=== PATIENT | female | born 1985 | race Caucasian/White ===

== ENCOUNTER → 2019-10-28 09:55 | Outpatient (CLI) | payer BC, SELFPAY ==
--- NOTE | ~2019-10-28 | US_ITS ---
EXAMINATION: US OB <= 14 weeks fetus DATE: 10/28/2019 10:22 INDICATION: Gestational dating. TECHNIQUE: Real-time transabdominal and transvaginal obstetric ultrasound. FINDINGS: No prior studies for comparison. The uterus measures 12 x 8.9 x 9.2 cm. There is an intrauterine gestational sac, with pole iden tified. There is a subchorionic hemorrhage to the left of the gestational sac measuring 1.4 x 1.6 x 1 .3 cm. The crown rump length measures 4.97 cm, which correlates with a estimated gestational age of 1 1 weeks 5 days. heart tones are identified measuring 168 BPM. There is a 2.6 cm corpus luteal cyst of the left ovary. IMPRESSION: 1. SL IUP with an EGA of 11 weeks, 5 days (EDC by current ultrasound of 05/13/2020). 2: Subchorionic hemorrhage. 3: 2.6 cm corpus luteal cyst of the left ovary. Reviewed, dictated and finalized at location A. IMPRESSION: 1. SL IUP with an EGA of 11 weeks, 5 days (EDC by current ultrasound of 05/14/19). 2: Subchorionic hemorrhage. 3: 2.6 cm corpus luteal cyst of the left ovary.
== END ==
PROVIDERS: Visit Provider Obstetrics & Gynecology Gynecology
DX: O26.21 Pregnancy care for patient with recurrent pregnancy loss, first trimester (principal); Z3A.11 11 weeks gestation of pregnancy
CPT/HCPCS: 76801

== ENCOUNTER → 2019-11-17 15:07 | Outpatient (CLI) | payer BC, SELFPAY ==
--- NOTE | ~2019-11-17 | US_ITS ---
EXAMINATION: US OB limited DATE: 11/17/2019 15:35 INDICATION: Subchorionic hematoma follow-up. Estimated gestational age of 14 weeks and 4 days. TECHNIQUE: Real-time ultrasound of the pelvis was performed. COMPARISON: Ultrasound 10/28/2019 FINDINGS: There is a single fetus in variable presentation. The placenta is posterior. There is a small subcho rionic hematoma measuring 3.4 x 1.9 x 1.3 cm. heart rate is 134 beats per minute (bpm). The amn iotic fluid volume is subjectively normal. IMPRESSION: 1. Single living fetus in variable presentation. 2. Small subchorionic hematoma. Reviewed, dictated and finalized at location A.
== END ==
PROVIDERS: Visit Provider Obstetrics & Gynecology Gynecology
DX: O36.8910 Maternal care for other specified fetal problems, first trimester, not applicable or unspecified (principal); Z3A.00 Weeks of gestation of pregnancy not specified
CPT/HCPCS: 76815

== ENCOUNTER → 2019-12-09 15:22 | Outpatient (CLI) | payer BC, SELFPAY ==
--- NOTE | ~2019-12-09 | US_ITS ---
EXAMINATION: US OB follow up DATE: 12/09/2019 16:12 INDICATION: Follow-up subchorionic hematoma during second trimester . TECHNIQUE: Real-time ultrasound of the pelvis was performed. The interpreting radiologist was not pre sent for the study. COMPARISON: 11/17/2019 FINDINGS: There is a single living fetus in vertex presentation. The placenta is posterior with caudal margin 3.9 cm from the internal cervical os. The placenta appears partially circumvallate. There appears to be a persistent small subchorionic hematoma along the left inferior elevated margin of the placenta m easuring up to 1.7 x 1.4 cm. heart rate is 154 beats per minute (bpm). The amniotic fluid volum e is subjectively normal. IMPRESSION: 1. Single living fetus in vertex presentation with heart rate of 154 bpm. 2. Likely partially circumvallate placenta with persistent small subchorionic hematoma along the left inferior margin of the placenta. Reviewed, dictated and finalized at location A. IMPRESSION: 1. Single living fetus in vertex presentation with heart rate of 154 bpm. 2. Likely partially circumvallate placenta with persistent small subchorionic h ematoma along the left inferior margin of the placenta.
== END ==
PROVIDERS: Visit Provider Nurse Practitioner
DX: O36.8911 Maternal care for other specified fetal problems, first trimester, fetus 1 (principal)
CPT/HCPCS: 76816

== ENCOUNTER 2020-05-07 04:57 | Inpatient (IN) | payer BC, SELFPAY ==
[2020-05-07] VITALS (83 sets, daily range): BP systolic 91–145; BP diastolic 41–100; PULSE 65–116; RESP 18; TEMP 36.5–36.9; O2SAT 96–100; BMI 41.0
[2020-05-07 05:24] LABS: Basophils Absolute Auto 0.1 K/mm3 (0.0-0.1); Basophils Percent Auto 0.7 % (0.2-1.2); Eosinophils Absolute Auto 0.2 K/mm3 (0-0.3); Eosinophils Percent Auto 2.6 % (0-4.4); Hematocrit 39.5 % (37.0-47.0); Hemoglobin 12.9 g/dL (12.0-15.0); Immature Granulocyte Absolute 0.23 K/mm3 (0.00-0.031); Immature Granulocyte Percent A 2.5 % (0-0.5); Lymphocytes Absolute Auto 1.79 K/mm3 (0.9-3.2); Lymphocytes Percent Auto 19.8 % (18.3-44.2); Mean Corpuscular HGB Conc 32.7 g/dl (32-36); Mean Corpuscular Volume 85.9 fl (80-100); Mean Platelet Volume 10.5 fl (7.4-10.4); Monocytes Absolute Auto 0.5 K/mm3 (0.1-0.6); Monocytes Percent Auto 5.7 % (2.6-8.5); Neutrophils Absolute Auto 6.2 K/mm3 (1.3-6.7); Neutrophils Percent Auto 68.7 % (45.5-73.1); Platelet Count Result 244 k/mm3 (150-375); Red Cell Distribution Width 15.9 % (11.5-14.5); White Blood Count 9.1 K/mm3 (4.5-10.0)
--- NOTE | 2020-05-07 05:29 | LDADM ---
This patient, Janet Rivera, was admitted to Labor/Delivery/Recovery 104 on 05/07/20 at 04:57. Plans for labor, pain management and were discussed with patient. Patient/family oriented to hospital policies and general routines including ID bracelet, bed and alarms, visiting hours, pain management, procedures, bathroom and other care routines, personal items, smoking policy, room service/diet and guest tray routines, infant security routines, and visiting hours. Patient/Family are encouraged to report perceived risks to care and to ask questions if they do not understand what they are told or what they should do. See OBIX for further documentation.
[2020-05-07] MEDS: OXYTOCIN 30 UNITS/NS 500 ML 30 UNITS/500 ML BAG IV CONT (05:43)
[2020-05-07] MEDS: LACTATED RINGERS 1,000 ML 125 ML IV CONT ×3 (05:43→10:34)
[2020-05-07 08:43] LABS: Rapid Plasma Reagin Non-Reactive (NonReactive)
--- NOTE | 2020-05-07 08:54 | WPDOBADMIT ---
Obstetrics - Admit Note Admission Note: record reviewed. No pertinent additions to the history and/or any subsequent changes in the physical findings that are not consistent with the expected course of the were found. Additions to the history and/or subsequent changes in the physical findings follow. Here for MIL. Cervix now 450/-2 AROM with clear fluid. FHTs reactive.
--- NOTE | 2020-05-07 09:22 | WPDANESEPPF ---
Anes - Initial Pre Proc Eval Date/Time: 05/07/20 09:22 Surgeon: Kaylee Thornton MD Pre Op Diagnosis: IOL Patient Data Age: 35 Gender: F Height: 1.6 m Weight: 105 kg Last Vital Signs Temp 36.6 C 05/07/20 06:57 Pulse 85 05/07/20 09:16 BP 127/79 05/07/20 09:16 Allergies Allergy/AdvReac Type Severity Reaction Status Date / Time doxycycline Allergy Mild LOSS OF Verified 11/23/18 12:29 VISION cefaclor Allergy Unknown Verified 03/06/17 21:20 codeine Allergy Unknown Verified 03/06/17 21:20 dextromethorphan Allergy Unknown Verified 03/06/17 21:20 [Robafen DM Cough-Chest Congest] guaifenesin Allergy Unknown Verified 03/06/17 21:20 Penicillins Allergy Unknown Verified 03/06/17 21:20 pseudoephedrine Allergy Unknown Verified 03/06/17 21:20 [Virtussin DAC] Sulfa (Sulfonamide Allergy Unknown Verified 03/06/17 21:20 Antibiotics) sulfamethizole Allergy Unknown Verified 03/06/17 21:20 Home Medications Medication Instructions Recorded Confirmed Type ergocalciferol (vitamin D2) 1,200 unit PO WEEKLY 05/07/20 05/07/20 History levothyroxine 50 mcg PO DAILY 05/07/20 05/07/20 History prenat.vits,daquan,uaq-qnaw-etqbl 1 tablet PO DAILY 05/07/20 05/07/20 History [ Vitamin] Laboratory Tests 05/07/20 05/07/20 05/07/20 05:20 05:20 05:20 WBC 9.1 K/mm3 K/mm3 (4.5-10.0) RBC 4.60 M/mm3 M/mm3 (4.2-5.4) Hgb 12.9 g/dL g/dL (12.0-15.0) Hct 39.5 % % (37.0-47.0) MCV 85.9 fl fl (80-100) MCH 28.0 pg pg (26-34) MCHC 32.7 g/dl g/dl (32-36) RDW 15.9 % H % (11.5-14.5) Plt Count 244 k/mm3 k/mm3 (150-375) MPV 10.5 fl H fl (7.4-10.4) Immature Gran % (Auto) 2.5 % H % (0-0.5) Neut % (Auto) 68.7 % % (45.5-73.1) Lymph % (Auto) 19.8 % % (18.3-44.2) Stoddard % (Auto) 5.7 % % (2.6-8.5) Eos % (Auto) 2.6 % % (0-4.4) Baso % (Auto) 0.7 % % (0.2-1.2) Lymph # (Auto) 1.79 K/mm3 K/mm3 (0.9-3.2) Stoddard # (Auto) 0.5 K/mm3 K/mm3 (0.1-0.6) Eos # (Auto) 0.2 K/mm3 K/mm3 (0-0.3) Baso # (Auto) 0.1 K/mm3 K/mm3 (0.0-0.1) Abs Immat Gran (auto) 0.23 K/mm3 H K/mm3 (0.00-0.031) Absolute Neuts (auto) 6.2 K/mm3 K/mm3 (1.3-6.7) Absolute Nucleated RBC 0.0 K/mm3 K/mm3 (0.0-0.012) Nucleated RBC % 0.0 % % (0.0-0.2) RPR Non-reactive (NonReactive) Blood Type A Positive Antibody Screen Negative Patient hx anesthesia problems: none Family hx anesthesia problems: none PMFSH Social History Social History Smoking status: Never smoker Substance use: never Gender identity (if verbalized by the patient): Female Sexual Orientation (if Verbalized by the Patient): Straight or Heterosexual Spiritual care concerns: No Anes - Eval Final PreProcedure Day of Procedure 05/07/20 09:22 Patient weight: morbidly obese Heart: regular rate and rhythm Lungs: clear to auscultation and normal air movement Airway: Mallampati scale class II Neurological: alert and oriented Last oral intake: >/= 8 hours ASA classification: III Emergent: no Anesthetic plan: proceed Anesthesia type and monitoring: regional epidural Informed Consent: The patient's anesthetic plan and its attendant risks and benefits were discussed with the patient/family/POA. Questions were solicited and answers provided to the satisfaction of the patient/family/POA.
--- NOTE | 2020-05-07 14:25 | PM.OBPRVD ---
OB - Delivery Note Procedure Delivery date: 05/07/20 Procedure: events: Labor Induction Intrapartal events: None Induction method: AROM and per pitocin protocol Delivery monitor: external FHT and external uterine Route of delivery: Laceration Description: Periurethral and Perineal - 2nd Degree Delivery repair: vicryl (3-0 vicryl) Specimen: No Quantitative Blood Loss (ml): 52 Anesthesia type: Epidural Disposition: floor Baby Date of : 05/07/20 Weeks of gestation at delivery: 39 Infant gender: Male presentation: vertex position: Right Occiput Anterior Placenta delivery description: Spontaneous cord vessel description: 3 Vessels score one minute: 9 score five minutes: 9
--- NOTE | 2020-05-07 14:29 | PM.OBDSVD ---
DS: Admitting Diagnosis Admitting Diagnosis Admitting Diagnosis: MIL DS: Discharge Diagnosis Discharge Diagnosis (1) (normal spontaneous vaginal delivery): Code(s): O80 - Encounter for full-term uncomplicated delivery Status: Acute (2) Encounter for sterilization: Code(s): Z30.2 - Encounter for sterilization Status: Acute OB - DS: Summary OB Procedures : Ultrasound OB Procedures Intrapartum: Spontaneous Vag Delivery OB Procedures: : P.P. tubal ligation Peripartum Data Infant Delivery Method: Natural Vaginal Laceration Description: Perineal - 2nd Degree Procedures: Procedures Operation Date: 05/08/20 12:00 <No data on this case meets the specified criteria> complications: none Status at Discharge Functional status at discharge: independent ambulation Overall status at discharge: patient is progressing back to baseline Time Spent with Patient Time attestation: Total time spent providing and/or coordinating discharge services: DS: Data Data Completed and Pending Labs on day of discharge: Labs from last 24 hours 05/07/20 05/07/20 05/07/20 05:20 05:20 05:20 WBC 9.1 RBC 4.60 Hgb 12.9 Hct 39.5 MCV 85.9 MCH 28.0 MCHC 32.7 RDW 15.9 H Plt Count 244 MPV 10.5 H Immature Gran % (Auto) 2.5 H Neut % (Auto) 68.7 Lymph % (Auto) 19.8 Bradley % (Auto) 5.7 Eos % (Auto) 2.6 Baso % (Auto) 0.7 Lymph # (Auto) 1.79 Bradley # (Auto) 0.5 Eos # (Auto) 0.2 Baso # (Auto) 0.1 Abs Immat Gran (auto) 0.23 H Absolute Neuts (auto) 6.2 Absolute Nucleated RBC 0.0 Nucleated RBC % 0.0 RPR Non-reactive Blood Type A Positive Antibody Screen Negative Discharge Plan Discharge Attending physician on discharge: Kaylee Thornton Discharging Clinician: Arik Maharaj Anticipated Discharge Date/Time: 05/08/20 14:30 Patient Disposition: Home, Self-Care Activity: may shower, may drive after 2 weeks and pelvic rest Diet: regular Wound Care Instructions: incision open to air Discharge Instructions: Education: Mom and Baby Guide and Preeclampsia Handout Given to: Mother Follow-Up: Call your delivering provider's office for an appointment to be seen in: 1 Week Mom and baby should come to the [facility] for the follow-up appointment. Appointment Date/Time: May 11, 2020 at 11:00 am What to expect at your follow-up visit: Physical Assessment Call [phone] if you are unable to keep your appointment time. BREAST CARE: * Wear a snug supportive bra. * For engorgement discomfort: Breast Feeding: * Apply warm moist washcloths * Express milk as needed to relieve engorgement * Wear loose clothing * For sore nipples: * Identify correct latch-on * Apply warm moist washcloths before and after nursing * Air dry nipples after nursing * May apply Lansinoh cream to nipples ABDOMINAL INCISION: (if applicable) * Allow incision to air dry * Do NOT use lotions for powders on your incision * When showering, allow soap and water to run over the incision, but do not wash incision EPISIOTOMY/PERINEAL CARE: * Until bleeding stops, use your nguyen bottle after urinating * Change your pad frequently throughout the day * You may take sitz baths several times a day (fill your bathtub with warm water and soak for 20 minutes.) Do NOT bathe in the water * No tub baths until seen by your physician - You may shower ACTIVITY: * Rest as much as possible. * Do not exercise or lift anything heavier than your baby (such as laundry or other children.) * Avoid stairs or driving as much as possible. * Do not put anything into the vagina. No douching, tampons, or sexual activity until seen by physician. NOTIFY PHYSICIAN IF YOU HAVE ANY QUESTIONS OR IF ANY OF THE FOLLOWING SYMPTOMS OCCUR: * If your episioto
--- NOTE | 2020-05-07 14:31 | PM.IMHP ---
H&P: HPI History of Present Illness Date/Time: 05/07/20 14:31 Chief Complaint: requests pp BTL Narrative: Janet Rivera is a 35 year old female requesting a pp BTL. Patient is aware this is a permanent and irreversible procedure rendering her sterile. Patient was informed of the risks of infection, bleeding, injury to internal organs, and tubal failure with increased ectopic if fails Review of Systems Review of Systems: Narrative: not repeated day of surgery; patient states no changes in status [facility] Past Medical History Medical History (Updated 05/07/20 @ 14:33 by Kaylee Thornton MD) Asthma Celiac disease Hypothyroid Social History Social History Smoking status: Never smoker Substance use: never Gender identity (if verbalized by the patient): Female Sexual Orientation (if Verbalized by the Patient): Straight or Heterosexual Spiritual care concerns: No Meds Home Medications and Allergies Home Medications Medication Instructions Recorded Confirmed Type ergocalciferol (vitamin D2) 1,200 unit PO WEEKLY 05/07/20 05/07/20 History levothyroxine 50 mcg PO DAILY 05/07/20 05/07/20 History prenat.vits,daquan,wdq-ovdi-ockre 1 tablet PO DAILY 05/07/20 05/07/20 History [ Vitamin] Allergies Allergy/AdvReac Type Severity Reaction Status Date / Time doxycycline Allergy Mild LOSS OF Verified 11/23/18 12:29 VISION cefaclor Allergy Unknown Verified 03/06/17 21:20 codeine Allergy Unknown Verified 03/06/17 21:20 dextromethorphan Allergy Unknown Verified 03/06/17 21:20 [Robafen DM Cough-Chest Congest] guaifenesin Allergy Unknown Verified 03/06/17 21:20 Penicillins Allergy Unknown Verified 03/06/17 21:20 pseudoephedrine Allergy Unknown Verified 03/06/17 21:20 [Virtussin DAC] Sulfa (Sulfonamide Allergy Unknown Verified 03/06/17 21:20 Antibiotics) sulfamethizole Allergy Unknown Verified 03/06/17 21:20 Vital Signs Vital Signs - 24 hr 05/07/20 05:49 05/07/20 06:00 05/07/20 06:01 Temperature 97.7 F Pulse Rate 102 H 109 H Blood Pressure 100/67 113/78 Pulse Oximetry 05/07/20 06:16 05/07/20 06:18 05/07/20 06:31 Temperature Pulse Rate 103 H 100 92 Blood Pressure 120/71 123/66 120/75 Pulse Oximetry 05/07/20 06:46 05/07/20 06:57 05/07/20 07:01 Temperature 97.9 F Pulse Rate 89 90 Blood Pressure 120/74 122/83 Pulse Oximetry 05/07/20 07:31 05/07/20 07:46 05/07/20 08:01 Temperature Pulse Rate 97 91 91 Blood Pressure 134/79 132/89 129/79 Pulse Oximetry 05/07/20 08:16 05/07/20 08:31 05/07/20 08:46 Temperature Pulse Rate 90 89 84 Blood Pressure 132/78 127/80 139/72 Pulse Oximetry 05/07/20 08:50 05/07/20 09:01 05/07/20 09:16 Temperature 97.9 F Pulse Rate 78 85 Blood Pressure 132/73 127/79 Pulse Oximetry 05/07/20 09:22 05/07/20 09:27 05/07/20 09:32 Temperature Pulse Rate 82 Blood Pressure 125/79 Pulse Oximetry 100 100 99 05/07/20 09:34 05/07/20 09:36 05/07/20 09:37 Temperature Pulse Rate 82 69 102 H Blood Pressure 114/63 125/100 H 96/56 L Pulse Oximetry 99 05/07/20 09:40 05/07/20 09:42 05/07/20 09:43 Temperature 97.9 F Pulse Rate 84 84 Blood Pressure 110/43 L 125/62 Pulse Oximetry 100 05/07/20 09:44 05/07/20 09:46 05/07/20 09:47 Temperature Pulse Rate 78 91 Blood Pressure 104/56 L 117/63 Pulse Oximetry 99 05/07/20 09:49 05/07/20 09:52 05/07/20 09:55 Temperature Pulse Rate 79 81 95 Blood Pressure 122/71 112/71 121/52 L Pulse Oximetry 99 05/07/20 09:57 05/07/20 09:59 05/07/20 10:01 Temperature Pulse Rate 89 83 Blood Pressure 109/62 110/58 L Pulse Oximetry 99 05/07/20 10:02 05/07/20 10:04 03/08/21 10:07 Temperature Pulse Rate 82 80 Blood Pressure 115/66 114/65 Pulse Oximetry 100 99 05/07/20 10:10 05/07/20 10:12 05/07/20 10:13 Temperature Pulse Rate 85 79 Blood Pressure 118/71 122/
[2020-05-07] MEDS: OXYTOCIN 30 UNITS/NS 500 ML 30 UNITS/500 ML BAG 125 UNITS IV CONT (14:50)
[2020-05-07] MEDS: BENZOCAINE 20% AER SPR (*SP) 56 GM CAN 1 SPRAY TOPICAL (17:34)
[2020-05-07] MEDS: WITCH HAZEL 40 PADS 1 PAD TOPICAL (17:34)
[2020-05-07] MEDS: IBUPROFEN 600 MG TABLET PO (18:00)
--- NOTE | 2020-05-07 18:46 | PC.NURSE ---
1743-Patient transferred to post room #286 via wheelchair. Transferred to bed via Margarita Steady. Support person present. Oriented to unit, room, information board, rooming in, admission packet and security measures. Patient verbalizes understanding.
[2020-05-08] VITALS (9 sets, daily range): BP systolic 95–128; BP diastolic 57–82; PULSE 77–96; RESP 16–22; TEMP 36.6–37.3; O2SAT 96–100
[2020-05-08 04:33] LABS: Hematocrit 33.5 % (37.0-47.0); Hemoglobin 10.9 g/dL (12.0-15.0); Mean Corpuscular HGB Conc 32.5 g/dl (32-36); Mean Corpuscular Hemoglobin 27.5 pg (26-34); Mean Corpuscular Volume 84.6 fl (80-100); Mean Platelet Volume 10.5 fl (7.4-10.4); Platelet Count Result 235 k/mm3 (150-375); Red Blood Count 3.96 M/mm3 (4.2-5.4); Red Cell Distribution Width 15.8 % (11.5-14.5); White Blood Count 10.9 K/mm3 (4.5-10.0)
--- NOTE | 2020-05-08 07:39 | PM.OBPNVD ---
OB - PN: Subj Subjective Date/time seen: 05/08/20 07:39 Patient comments: no complaints and pain well controlled baby status: doing well OB - PN: Obj Data Labs CBC & Chem 7: 05/08/20 04:15 Labs: Laboratory Results - last 24 hr 05/07/20 05/08/20 05:20 04:15 WBC 10.9 H RBC 3.96 L Hgb 10.9 L Hct 33.5 L MCV 84.6 MCH 27.5 MCHC 32.5 RDW 15.8 H Plt Count 235 MPV 10.5 H RPR Non-reactive OB - PN A/P Assessment and Plan (1) Encounter for sterilization: Code(s): Z30.2 - Encounter for sterilization Status: Acute Assessment and Plan: plan pp BTL Patient questions answered. Plan day: 1 Plan: routine care Time Spent With Patient Time: Total time spent is greater than 50% in coordination of care (as documented) at patient's floor/unit and/or counseling patient: Exam : Bimanual exam- vagina & uterus: other (Uterus firm, nt @U)
[2020-05-08] MEDS: LEVOTHYROXINE SODIUM 50 MCG TABLET PO (07:42)
[2020-05-08] MEDS: IBUPROFEN 600 MG TABLET PO ×2 (07:48→14:39)
--- NOTE | 2020-05-08 10:33 | PC.NURSE ---
Pre-op here to take patient for surgery per hospital bed.
[2020-05-08] MEDS: LACTATED RINGERS 1,000 ML 30 ML IV CONT (10:40)
--- NOTE | 2020-05-08 11:03 | WPDANESEPPF ---
Anes - Initial Pre Proc Eval Procedure: Operation Date: 05/08/20 12:00 Proposed Procedures p Post- Tubal Ligation - Kaylee Thornton MD Date/Time: 05/08/20 11:03 Surgeon: Kaylee Thornton MD Pre Op Diagnosis: IOL Patient Data Age: 35 Gender: F Height: 5 ft 3 in Weight: 105 kg Last Vital Signs Temp 97.9 F 05/08/20 10:41 Pulse 80 05/08/20 10:41 Resp 16 05/08/20 10:41 BP 118/75 05/08/20 10:41 Pulse Ox 98 05/08/20 10:41 Allergies Allergy/AdvReac Type Severity Reaction Status Date / Time doxycycline Allergy Mild LOSS OF Verified 11/23/18 12:29 VISION cefaclor Allergy Unknown Verified 03/06/17 21:20 codeine Allergy Unknown Verified 03/06/17 21:20 dextromethorphan Allergy Unknown Verified 03/06/17 21:20 [Robafen DM Cough-Chest Congest] guaifenesin Allergy Unknown Verified 03/06/17 21:20 Penicillins Allergy Unknown Verified 03/06/17 21:20 pseudoephedrine Allergy Unknown Verified 03/06/17 21:20 [Virtussin DAC] Sulfa (Sulfonamide Allergy Unknown Verified 03/06/17 21:20 Antibiotics) sulfamethizole Allergy Unknown Verified 03/06/17 21:20 Home Medications Medication Instructions Recorded Confirmed Type ergocalciferol (vitamin D2) 1,200 unit PO WEEKLY 05/07/20 05/07/20 History levothyroxine 50 mcg PO DAILY 05/07/20 05/07/20 History prenat.vits,daquan,fnu-tuho-vhfhp 1 tablet PO DAILY 05/07/20 05/07/20 History [ Vitamin] Laboratory Tests 05/08/20 04:15 WBC 10.9 K/mm3 H K/mm3 (4.5-10.0) RBC 3.96 M/mm3 L M/mm3 (4.2-5.4) Hgb 10.9 g/dL L g/dL (12.0-15.0) Hct 33.5 % L % (37.0-47.0) MCV 84.6 fl fl (80-100) MCH 27.5 pg pg (26-34) MCHC 32.5 g/dl g/dl (32-36) RDW 15.8 % H % (11.5-14.5) Plt Count 235 k/mm3 k/mm3 (150-375) MPV 10.5 fl H fl (7.4-10.4) Patient hx anesthesia problems: none Family hx anesthesia problems: none PMFSH Past Medical History Medical History (Updated 05/07/20 @ 14:33 by Kaylee Thornton MD) Asthma Celiac disease Hypothyroid Social History Social History Smoking status: Never smoker Substance use: never Gender identity (if verbalized by the patient): Female Sexual Orientation (if Verbalized by the Patient): Straight or Heterosexual Spiritual care concerns: No Anes - Eval Final PreProcedure Day of Procedure 05/08/20 11:03 Patient weight: morbidly obese Heart: regular rate and rhythm Lungs: clear to auscultation Airway: Mallampati scale class II Neurological: alert and oriented Last oral intake: >/= 8 hours ASA classification: III Emergent: no Anesthetic plan: proceed Anesthesia type and monitoring: general GIVS, regional (has epidural in place and states it worked well for labor) epidural and standard monitoring Informed Consent: The patient's anesthetic plan and its attendant risks and benefits were discussed with the patient/family/POA. Questions were solicited and answers provided to the satisfaction of the patient/family/POA.
--- NOTE | 2020-05-08 11:43 | SUR.PREOP ---
Resting without complaints.
--- NOTE | 2020-05-08 12:34 | WPDHPUPDATE1 ---
History and Physical Update Update Date/Time: 05/08/20 12:34 History and Physical has been reviewed, including an updated exam of the patient. There are NO changes in the patient's condition. Risks, benefits, and alternatives have been discussed and questions answered. Patient agrees to proceed with procedure.
--- NOTE | 2020-05-08 13:12 | P.OP_ITS ---
Procedure Note - Detailed Date of procedure: 05/08/20 Pre-op diagnosis: requests sterilization Post-op diagnosis: same Procedure performed: pp BTL Description of procedure: The patient was taken to the operating room in the dorsal supine position. She was prepped and draped in the usual sterile fashion. Once anesthesia was deemed adequate the skin incision was injected with 1% lidocaine. The scalpel used to make a vertical skin incision below the umbilicus approximately 4cm in length. This incision is carried down to the fascia fascia is grasped with [facility] and tented and the fascia was entered u sing Tay scissors. The peritoneum is entered with a Peon. The small Power retractors are used to retract the abdominal wall the left tube is identified grasped with a Anum pulled through to its fimbriated end the distal 2/3 of the tube are crossclamped excised and the pedicle was tied off using 0 Vicryl. The identical procedure was performed on the right side. The hemostasis is noted at both pedicles. The fascia is closed using 0 Vicryl in a running fashion. The skin incision is closed using 4 0 Vicryl in a subcuticular fashion. Dermaflex was placed over the incision. Sponge, instrument, and needle counts are correct per the OR staff. Anesthesia: local and epidural Surgeon: Kaylee Thornton MD Estimated blood loss (mL): 5 Drains: No Packing: No Pathology: yes (B tubes) Complications: No immediate complications Condition: stable Disposition: PACU Findings: normal appearing tubes
--- NOTE | 2020-05-08 13:22 | SUR.OPER ---
epidural removed by dr. boyer. blue tip intact. bandaid placed on site
--- NOTE | 2020-05-08 13:26 | WPDANLDPN2 ---
Anes-Prog Note L&D Date/Time: 05/08/20 13:26 Comfortable throughout: labor and delivery Neuraxial method: epidural Epidural/Spinal procedure site: clean & non-tender Neuro status: Neuro function grossly intact. Cardiovascular status: normal Respiratory status: normal Airway patency: baseline Mental status: baseline Post-Op hydration status: normal Vital Signs: Last Vital Signs Temp 36.6 C 05/08/20 10:41 Pulse 80 05/08/20 10:41 Resp 16 05/08/20 10:41 BP 118/75 05/08/20 10:41 Pulse Ox 98 05/08/20 10:41 Pain score (VAS): 03/11 I/O: Intake & Output 05/07/20 05/08/20 05/08/20 23:59 07:59 15:59 Output Total 80 Balance -80 Post-procedural complaints: none Patient feedback: Patient satisfied with anesthetic care.
--- NOTE | 2020-05-08 14:28 | PC.NURSE ---
Pt returned to floor from PACU per bed to room 286.
[2020-05-08] MEDS: ACETAMINOPHEN 325 MG TABLET 650 MG PO ×2 (16:20→21:49)
[2020-05-09] MEDS: IBUPROFEN 600 MG TABLET PO (05:23)
[2020-05-09] MEDS: LEVOTHYROXINE SODIUM 50 MCG TABLET PO (05:23)
--- NOTE | 2020-05-09 08:05 | PC.NURSE ---
Patient instructed on viewing the discharge video Mother & Baby Care, The First Two Weeks . Patient was given the opportunity and encouraged to ask questions. Patient verbalized understanding of information shared and has been given the mother/baby guide for home reference.
[2020-05-09 08:10] VITALS: BP 102/67; PULSE 79; RESP 18; TEMP 37.3; O2SAT 95
[2020-05-09] MEDS: MULTIVIT/MIN/PREN/FOL AC/IRON TABLET 1 TAB PO (08:43)
--- NOTE | 2020-05-09 10:55 | PC.NURSE ---
Consult with pt., did not see pt 05/08 due to PPTL. Observed mother is able to independently latch infant with appropriate positioning/alignment. She reports slight any nipple discomfort, is feeding as required and waking infant to feed if needed. Reviewed feeding cues, frequencies, duration of feedings, feeding elimination flow sheet, and signs of adequate intake. Demonstrated stimulation techniques to wake infant for feeding. Reviewed positioning/alignment in cross cradle, holding breast in U hold and guided asymmetrical latch on. was able to latch correctly within a few attempts. Infant nursed eagerly, with steady draws and frequent swallowing noted. Reviewed signs of a correct latch, effective nursing and suck swallow ratio. was able to maintain latch. Mother reported tenderness at times, infant had slipped to shallow latch. Demonstrated how to adjust latch more deeply while feeding. Mother quickly reports she can feel is latched more deeply and has minimal tenderness. Suggested to stimulate infant while feeding to keep awake and nursing effectively for increased stimulation and increased intake. Instructed mother to call out for RN assistance if she is unable to latch for feeding or she has discomfort with nursing. Infant has had at least 8 effective feedings in the past 24 hours, and is currently meeting outcomes for weight, output, jaundice and feeding frequencies. Mother states she feels confident to continue effective at home. Reviewed transition to breast milk, signs of adequate intake, and engorgement/relief. Instructed to call ICP if intake/output less than required. Reviewed regular medications mother is taking. Information provided per [place]. Reviewed community resources on the [facility] website and in the Mom/Baby guide. Information on outpatient services provided. Mother has no further questions at this time.
[2020-05-11 11:27] VITALS: BP 131/82; PULSE 84; RESP 16; TEMP 36.6; O2SAT 100
== END 2020-05-09 12:25 | disposition home or self-care (01) | DRG 798 ==
LOC: ANHLDR 14:31 → ANHOB2 05-08 13:14 → ANHLDR 05-10 09:49 → ANHOB2 05-10 09:49
PROVIDERS: Admitting Provider Obstetrics & Gynecology Gynecology; Visit Provider Obstetrics & Gynecology
PROC: 0UB70ZZ Excision of Bilateral Fallopian Tubes, Open Approach (ICD-10-PCS; CPT 58605; principal; 2020-05-08 12:00)
DX: O99.824 Streptococcus B carrier state complicating childbirth (principal); Z37.0 Single live birth; Z3A.39 39 weeks gestation of pregnancy; O70.1 Second degree perineal laceration during delivery; Z30.2 Encounter for sterilization; O99.214 Obesity complicating childbirth; E66.01 Morbid (severe) obesity due to excess calories; O99.52 Diseases of the respiratory system complicating childbirth; J45.909 Unspecified asthma, uncomplicated; O99.284 Endocrine, nutritional and metabolic diseases complicating childbirth; E03.9 Hypothyroidism, unspecified; O99.62 Diseases of the digestive system complicating childbirth; K90.0 Celiac disease
CPT/HCPCS: 36415; 85025; 85027; 86592; 86850; 86900; 86901; 88302; A9270; J2590; J2704; J2795; J3370; J7120

== ENCOUNTER 2021-12-17 22:01 | Emergency (ER) | payer BC, OTHER, SELFPAY ==
--- NOTE | ~2021-12-17 | XR_ITS ---
EXAMINATION: XR chest 1V portable Exam Date/Time: 12/17/2021 22:44 CDT HISTORY: MIDSTERNAL CP W/ SOB TODAY N/V/D 1 DAY HX ASTHMA Comparison: None available. RESULT: Lines, tubes, and devices: None. Lungs and pleura: Clear. Cardiomediastinal silhouette: Unremarkable. Other: No acute osseous or upper abdominal finding. IMPRESSION: No acute cardiopulmonary process. Reviewed, dictated and finalized at location K.
[2021-12-17 22:06] VITALS: BP 115/79; PULSE 92; RESP 18; TEMP 36.3; O2SAT 100
--- NOTE | 2021-12-17 22:19 | ECG_ITS ---
Measurements Intervals [place] Rate: 89 P: 30 AL: 162 QRS: -1 QRSD: 94 T: 23 QT: 345 QTc: 420 Interpretive Statements SINUS RHYTHM NONSPECIFIC ST ABNORMALITY BORDERLINE ECG NO PREVIOUS ECG AVAILABLE FOR COMPARISON Electronically Signed On 12-18-2021 10:20:03 CDT by Mundo Beverly M.D.
--- NOTE | 2021-12-17 22:21 | ED.CHESTPAIN ---
HPI - Chest Pain General Chief Complaint: Nausea/Vomiting/Diarrhea Stated Complaint: Nausea, body aches, chest pain Time Seen by Provider: 12/17/21 22:13 Source: patient Mode of arrival: ambulatory Limitations: no limitations History of Present Illness HPI narrative: Patient presents complaints of generalized chest pain that started at 1800 this evening. Reports of nausea vomiting yesterday x2 episodes with diarrhea x1 episode. Reports some shortness of breath at times and has been using rescue inhaler at home. History of asthma. Did not take any other medications prior to arrival. Denies recent illness, fever, chills or other symptoms at this time. Last menstrual period November 27 but states has had tubal ligation. Related Data Home Medications Medication Instructions Recorded Confirmed ergocalciferol (vitamin D2) 1,250 1,200 unit PO WEEKLY 05/07/20 05/07/20 mcg (50,000 unit) capsule levothyroxine 50 mcg tablet 50 mcg PO DAILY 05/07/20 05/07/20 prenat.vits,daquan,mmq-tanw-txaza 1 tablet PO DAILY 05/07/20 05/07/20 Allergies Allergy/AdvReac Type Severity Reaction Status Date / Time doxycycline Allergy Mild LOSS OF Verified 12/17/21 22:03 VISION cefaclor Allergy Unknown Unknown Verified 12/17/21 22:03 codeine Allergy Unknown Unknown Verified 12/17/21 22:03 dextromethorphan Allergy Unknown Unknown Verified 12/17/21 22:03 [Robafen DM Cough-Chest Congest] guaifenesin Allergy Unknown Unknown Verified 12/17/21 22:03 Penicillins Allergy Unknown Unknown Verified 12/17/21 22:03 pseudoephedrine Allergy Unknown Unknown Verified 12/17/21 22:03 [Virtussin DAC] Sulfa (Sulfonamide Allergy Unknown Unknown Verified 12/17/21 22:03 Antibiotics) sulfamethizole Allergy Unknown Unknown Verified 12/17/21 22:03 Review of Systems Review of Systems: CONSTITUTIONAL: Denies fever, chills, or sweats. EYES: Denies visual changes, redness, or discharge. ENT: Denies rhinorrhea, congestion, sore throat, or otalgia. CARDIOVASCULAR: Generalized chest pain. Denies palpitations, or edema. RESPIRATORY: Denies cough or dyspnea. GASTROINTESTINAL: Denies abdominal pain. nausea, vomiting, or diarrhea yesterday. GENITOURINARY: Denies dysuria or hematuria. SKIN: Denies rash or itching. MUSCULOSKELETAL: Denies back pain, joint pain, or myalgia. NEUROLOGIC: Denies headache, numbness, or weakness. PSYCHIATRIC: Denies anxiety or depression. PMFSH Past Medical History Medical History Asthma Celiac disease Hypothyroid Social History Social History Smoking status: Never smoker Substance use: never Gender identity (if verbalized by the patient): Female Sexual Orientation (if Verbalized by the Patient): Straight or Heterosexual Spiritual care concerns: No Exam Narrative: GENERAL: Well-appearing, well-nourished, and in no acute distress. HEAD: Normocephalic, atraumatic. EYES: PERRLA and EOMI. ENT: Nares clear, no rhinorrhea or epistaxis. Mucous membranes moist. NECK: Supple. CHEST: Clear to auscultation. No respiratory distress. Tender to palpation midsternal chest. HEART: Regular rate and rhythm. No murmur heard. Normal peripheral pulses. ABDOMEN: Soft, nontender, nondistended, normal active bowel sounds. EXTREMITIES: Normal range of motion. No edema. SKIN: Warm, dry, no rash. NEURO: No focal deficits. Alert and oriented x3. PSYCH: Normal mood and affect. Course Course Emergency Course: Reports feeling better following Toradol IV. States ready to go home. Vital Signs Vital signs: Vital Signs Temperature 36.3 C L 12/17/21 22:06 Pulse Rate 92 12/17/21 22:06 Respiratory Rate 18 12/17/21 22:06 Blood Pressure 115/79 12/17/21 22:06 Pulse Oximetry 100 12/17/21 22:06 Oxygen Delivery Room Air 12/17/21 22:06 Temperature 36.3 C L 12/17/21 22:06 Pulse Rate 85 12/17/21 23:16
[2021-12-17 22:30] VITALS: BP 123/93; PULSE 91; RESP 19; O2SAT 100
[2021-12-17 22:33] LABS: Basophils Percent Auto 0.4 % (0.2-1.2); Eosinophils Absolute Auto 0.1 K/mm3 (0-0.3); Eosinophils Percent Auto 1.8 % (0-4.4); Hematocrit 40.4 % (37.0-47.0); Hemoglobin 13.2 g/dL (12.0-15.0); Immature Granulocyte Absolute 0.03 K/mm3 (0.00-0.031); Immature Granulocyte Percent A 0.5 % (0-0.5); Lymphocytes Absolute Auto 1.44 K/mm3 (0.9-3.2); Lymphocytes Percent Auto 26.3 % (18.3-44.2); Mean Corpuscular HGB Conc 32.7 g/dl (32-36); Mean Corpuscular Hemoglobin 28.9 pg (26-34); Mean Corpuscular Volume 88.4 fl (80-100); Mean Platelet Volume 10.3 fl (7.4-10.4); Monocytes Absolute Auto 0.6 K/mm3 (0.1-0.6); Monocytes Percent Auto 11.3 % (2.6-8.5); Neutrophils Absolute Auto 3.3 K/mm3 (1.3-6.7); Neutrophils Percent Auto 59.7 % (45.5-73.1); Platelet Count Result 229 k/mm3 (150-375); Red Blood Count 4.57 M/mm3 (4.2-5.4); Red Cell Distribution Width 13.2 % (11.5-14.5); White Blood Count 5.5 K/mm3 (4.5-10.0)
[2021-12-17 22:45] LABS: INR 1.1; Prothrombin Time 13.6 Seconds (11.1-14.7)
[2021-12-17 22:46] LABS: Partial Thromboplastin Time 29.7 SECONDS (22.3-36.8)
[2021-12-17 22:49] LABS: Alanine Aminotransferase 28 U/L (6-35); Albumin Level 4.4 g/dL (3.5-5.1); Alkaline Phosphatase 50 U/L (38-126); Anion Gap 13 mmol/L (8-16); Aspartate Amino Transferase 27 U/L (14-36); Bilirubin,Total 0.7 mg/dL (0.2-1.3); Blood Urea Nitrogen 13 mg/dL (7-17); Calcium 9.1 mg/dL (8.4-10.2); Carbon Dioxide 23 mmol/L (22-30); Chloride 101 mmol/L (98-107); Estimated CRCL calculation 90 ml/min; Estimated Glomerular Filt Rate > 60; Glucose 103 mg/dL (65-110); Lipase 109 U/L (23-300); Potassium 3.5 mmol/L (3.4-5.0); Sodium 137 mmol/L (137-145)
[2021-12-17 23:00] VITALS: BP 112/74; PULSE 86; RESP 23
[2021-12-17 23:00] LABS: Troponin I < 0.012 ng/mL (0.000-0.034)
[2021-12-17 23:16] VITALS: BP 120/74; PULSE 85; RESP 26; O2SAT 100
[2021-12-17] MEDS: KETOROLAC 30 MG/ML VIAL (*BKC) IV PUSH (23:38)
[2021-12-18 00:15] VITALS: BP 105/59; PULSE 86; RESP 18; O2SAT 100
== END 2021-12-18 00:12 | disposition home or self-care (01) ==
PROVIDERS: Emergency Provider Nurse Practitioner
DX: R07.89 Other chest pain (principal); K52.9 Noninfective gastroenteritis and colitis, unspecified; J45.909 Unspecified asthma, uncomplicated; K90.0 Celiac disease; E03.9 Hypothyroidism, unspecified
CPT/HCPCS: 36415; 71045; 80053; 83690; 84484; 85025; 85610; 85730; 93005; 96374; 99284; J1885

== ENCOUNTER 2023-02-05 04:13 | Day surgery (SDC) | payer BC, SELFPAY ==
[2023-01-26 11:11] VITALS: BMI 35.5
--- NOTE | 2023-02-03 11:39 | SUR.PREOP ---
Message left with patient regarding upcoming procedure. Reviewed preop instructions, appointment times, and procedure prep.
[2023-02-05 08:34] VITALS: BP 136/77; PULSE 87; RESP 20; TEMP 36.3; O2SAT 100; BMI 36.6
[2023-02-05] MEDS: LACTATED RINGERS 1,000 ML 150 ML IV CONT (08:42)
--- NOTE | 2023-02-05 08:59 | P.HP_ITS ---
History of Present Illness History of Present Illness Consent: Risks, benefits, and alternatives have been discussed and questions answered. Patient agrees to proceed with procedure. Chief complaint: Neoplasm Screening Narrative: Janet Rivera is a 37 year old female Presents for screening colonoscopy. Patient has a history that she was diagnosed with celiac disease in [place] several years ago. During workup for her diagnosis she underwent a colonoscopy which revealed benign colon polyps. The histology of which is somewhat unknown. She was suggested to have follow-up colonoscopies at 5-10 year intervals. Patient currently states her celiac disease is under control. She follows a gluten free diet. She states her bowel habits currently are normal. She denies any abdominal pain or bleeding. Review of Systems Review of Systems: Review of systems noncontributory. [facility] Past Medical History Medical History Asthma Celiac disease Hypothyroid Social History Social History Smoking status: Never smoker Alcohol intake: current Drinks per week: 7 Substance use: never Substance use type: does not use Living arrangements: alone Gender identity (if verbalized by the patient): Female Sexual Orientation (if Verbalized by the Patient): Straight or Heterosexual Spiritual care concerns: No Meds Home Medications and Allergies Allergies Allergy/AdvReac Type Severity Reaction Status Date / Time doxycycline Allergy Mild LOSS OF Verified 02/05/23 08:32 VISION cefaclor Allergy Unknown Unknown Verified 02/05/23 08:32 codeine Allergy Unknown Unknown Verified 02/05/23 08:32 Penicillins Allergy Unknown Unknown Verified 02/05/23 08:32 Sulfa (Sulfonamide Allergy Unknown Unknown Verified 02/05/23 08:32 Antibiotics) sulfamethizole Allergy Unknown Unknown Verified 02/05/23 08:32 Vital Signs Vital Signs - 24 hr 02/05/23 08:34 Temperature 97.3 F L Pulse Rate 87 Respiratory Rate 20 Blood Pressure 136/77 Pulse Oximetry 100 Oxygen Delivery Room Air Exam Narrative: Physical exam reveals patient to be alert. Vital signs stable. HEENT exam is unremarkable. Patient is anicteric. Lungs are clear to auscultation and percussion. Heart is without murmur or extra sounds. Abdomen bowel sounds are present soft nontender with no organomegaly. Digital external rectal exam is normal. Assessment and Plan Assessment and plan (1) Encounter for screening colonoscopy: Code(s): Z12.11 - Encounter for screening for malignant neoplasm of colon Status: Acute Assessment and Plan: Patient is referred for screening colonoscopy. It appears as though she may have had colon polyps by previous exam performed in [place]. The histology of these are unavailable. Plan for screening colonoscopy now and further recommendations may be given after endoscopy.
--- NOTE | 2023-02-05 09:41 | WPDANESEPPF ---
Anes - Initial Pre Proc Eval Procedure: Operation Date: 02/05/23 10:00 Proposed Procedures p Screening Colonoscopy - Too Hobson MD Date/Time: 02/05/23 09:41 Surgeon: Too Hobson MD Pre Op Diagnosis: Neoplasm Screening Patient Data Age: 37 Gender: F Height: 1.6 m Weight: 93.9 kg Last Vital Signs Temp 97.3 F L 02/05/23 08:34 Pulse 87 02/05/23 08:34 Resp 20 02/05/23 08:34 BP 136/77 02/05/23 08:34 Pulse Ox 100 02/05/23 08:34 O2 Del Method Room Air 02/05/23 08:34 Allergies Allergy/AdvReac Type Severity Reaction Status Date / Time doxycycline Allergy Mild LOSS OF Verified 02/05/23 08:32 VISION cefaclor Allergy Unknown Unknown Verified 02/05/23 08:32 codeine Allergy Unknown Unknown Verified 02/05/23 08:32 Penicillins Allergy Unknown Unknown Verified 02/05/23 08:32 Sulfa (Sulfonamide Allergy Unknown Unknown Verified 02/05/23 08:32 Antibiotics) sulfamethizole Allergy Unknown Unknown Verified 02/05/23 08:32 Patient hx anesthesia problems: none Family hx anesthesia problems: none Results Review: All pre-operative results and documents have been reviewed as part of the pre-operative evaluation. [facility] Past Medical History Medical History Asthma Celiac disease Hypothyroid Social History Social History Smoking status: Never smoker Alcohol intake: current Drinks per week: 7 Substance use: never Substance use type: does not use Living arrangements: alone Gender identity (if verbalized by the patient): Female Sexual Orientation (if Verbalized by the Patient): Straight or Heterosexual Spiritual care concerns: No Anes - Eval Final PreProcedure Day of Procedure 02/05/23 09:41 Patient weight: obese Heart: regular rate and rhythm Lungs: clear to auscultation Airway: Mallampati scale class II Neurological: alert and oriented Last oral intake: >/= 8 hours ASA classification: II Emergent: no Anesthetic plan: proceed Anesthesia type and monitoring: general GIVS and standard monitoring Results Review: All pre-operative results and documents have been reviewed as part of the pre-operative evaluation. Informed Consent: The patient's anesthetic plan and its attendant risks and benefits were discussed with the patient/family/POA. Questions were solicited and answers provided to the satisfaction of the patient/family/POA.
[2023-02-05 09:54] VITALS: BP 107/57; PULSE 88; RESP 20; O2SAT 97
[2023-02-05 10:04] VITALS: BP 113/74; PULSE 74; RESP 15; O2SAT 99
[2023-02-05 10:14] VITALS: BP 113/76; PULSE 73; RESP 20; O2SAT 99
== END 2023-02-05 10:23 | disposition home or self-care (01) ==
PROVIDERS: PCP Family Medicine; Visit Provider Internal Medicine Gastroenterology
PROC: 0DJD8ZZ Inspection of Lower Intestinal Tract, Via Natural or Artificial Opening Endoscopic (ICD-10-PCS; CPT 45378; principal; 2023-02-05 10:00)
DX: Z12.11 Encounter for screening for malignant neoplasm of colon (principal); K64.8 Other hemorrhoids; Z86.010 Personal history of colon polyps; K90.0 Celiac disease; E66.9 Obesity, unspecified; Z68.36 Body mass index [BMI] 36.0-36.9, adult
CPT/HCPCS: 45378; J2704; J7120

== ENCOUNTER 2023-02-24 12:34 | Emergency (ER) | payer BC, SELFPAY ==
--- NOTE | ~2023-02-24 | XR_ITS ---
EXAMINATION: XR finger 4th RT min 2V DATE: 02/24/2023 13:33 INDICATION: Pain to the right fourth middle phalanx TECHNIQUE: Dorsal palmar, lateral and 2 oblique views of the right fourth digit were obtained COMPARISON: None FINDINGS: Subtle oblique linear lucency consistent with nondisplaced intra-articular fracture extending from th e radial side of the mid diaphysis distally to the central articular surface at the head of the middl e phalanx. No significant fracture gap or incongruity at the articular surface. Alignment remains ess entially anatomic. No other fractures identified. Joint spaces are normal. Soft tissues are unremarka ble. IMPRESSION: 1. Nondisplaced intra-articular fracture of the mid to distal right fourth middle phalanx. Reviewed, dictated and finalized at location A. [employer] CONSULTANT IMPRESSION: 1. Nondisplaced intra-articular fracture of the mid to distal right fourth midd le phalanx.
[2023-02-24 13:11] VITALS: BP 116/83; PULSE 80; RESP 16; TEMP 36.7; O2SAT 100
--- NOTE | 2023-02-24 16:01 | ED.UPPEXIN ---
HPI - Extremity Injury (Upper) General Chief Complaint: Extremity Injury, Upper Stated Complaint: r. ring finger injury Time Seen by Provider: 02/24/23 16:00 Source: patient Mode of arrival: ambulatory Limitations: no limitations History of Present Illness HPI narrative: Patient is a very pleasant 37-year-old female without any significant past medical history who presents to the emergency department today ambulatory with a steady for evaluation of right ring finger pain that occurred when walking her dog and having the leash pull her finger. cannot bend it past the middle aspect. denies tingling or decreased sensation. states it does feel just mildly numb. no other injury reported. does not need anything for pain she states. Related Data Allergies Allergy/AdvReac Type Severity Reaction Status Date / Time doxycycline Allergy Mild LOSS OF Verified 02/05/23 08:32 VISION cefaclor Allergy Unknown Unknown Verified 02/05/23 08:32 codeine Allergy Unknown Unknown Verified 02/05/23 08:32 Penicillins Allergy Unknown Unknown Verified 02/05/23 08:32 Sulfa (Sulfonamide Allergy Unknown Unknown Verified 02/05/23 08:32 Antibiotics) sulfamethizole Allergy Unknown Unknown Verified 02/05/23 08:32 Review of Systems Review of Systems: CONSTITUTIONAL: Denies fever, chills SKIN: Denies rash or itching. MUSCULOSKELETAL: + right ring finger swelling/pain/bruising and decreased ROM NEUROLOGIC: +mild numb feeling to right ring finger. All systems reviewed & are unremarkable except as noted in HPI and below PMFSH Past Medical History Medical History Asthma Celiac disease Hypothyroid Social History Social History Smoking status: Never smoker Alcohol intake: current Drinks per week: 7 Substance use: never Substance use type: does not use Living arrangements: alone Gender identity (if verbalized by the patient): Female Sexual Orientation (if Verbalized by the Patient): Straight or Heterosexual Spiritual care concerns: No Exam Narrative: GENERAL: Well-appearing, well-nourished, overweight, and in no acute distress. CHEST:No respiratory distress. HEART: Regular rate . 2+ radial pulse on the right EXTREMITIES: right ring finger with swelling/bruising/tenderness over the PIP joint with decreased ROM due to pain. distal NV intact. color appropriate. cap refill <2 seconds. no significant displacement noted on exam. SKIN: Warm, dry, no rash. NEURO: No focal deficits. distal NV intact to the RUE. PSYCH: Normal mood and affect. Course Vital Signs Vital signs: Vital Signs Temperature 98.1 F 02/24/23 13:11 Pulse Rate 80 02/24/23 13:11 Respiratory Rate 16 02/24/23 13:11 Blood Pressure 116/83 02/24/23 13:11 Pulse Oximetry 100 02/24/23 13:11 Oxygen Delivery Room Air 02/24/23 13:11 Temperature 98.1 F 02/24/23 13:11 Pulse Rate 70 02/24/23 16:05 Respiratory Rate 18 02/24/23 16:05 Blood Pressure 116/83 02/24/23 13:11 Pulse Oximetry 100 02/24/23 16:05 Oxygen Delivery Room Air 02/24/23 13:11 MDM - Extremity Injury (Upper) MDM Narrative Medical decision making narrative: Patient presents after an injury when she was walking her dog and her finger got caught in a leash. X-ray shows a nondisplaced acute intra-articular fracture of the mid to distal right fourth middle phalanx. No signs of neurovascular compromise. Patient put in a finger splint/madalyn wrap and will follow-up with Hand/Ortho. Discussed supportive care measures for symptoms. Patient is nontoxic in appearance. Stable re-evaluation exam just before discharge. Patient in no acute distress. Vitals within normal limits. Discussions hearing Imaging Data Radiologist's impression: Impressions Finger X-Ray 02/24/23 13:39 IMPRESSION: 1. Nondisplaced intra-articular fracture of the mid to distal r
[2023-02-24 16:05] VITALS: PULSE 70; RESP 18; O2SAT 100
== END 2023-02-24 16:16 | disposition home or self-care (01) ==
PROVIDERS: Emergency Provider Nurse Practitioner; PCP Family Medicine
DX: S62.654A Nondisplaced fracture of middle phalanx of right ring finger, initial encounter for closed fracture (principal); X50.0XXA Overexertion from strenuous movement or load, initial encounter
CPT/HCPCS: 29130; 73140; 99284

== ENCOUNTER 2023-04-25 13:44 | Emergency (ER) | payer BC, MEDICAID, SELFPAY ==
--- NOTE | 2023-04-25 13:46 | ED.URI ---
HPI - URI/Sore Throat General Chief Complaint: Upper Respiratory Infection Stated Complaint: SORE THROAT Time Seen by Provider: 04/25/23 13:46 Source: patient Mode of arrival: ambulatory Limitations: no limitations History of Present Illness HPI Narrative: Janet is a 38 year-old female patient presenting to the clinic today with complaints fever, body aches, chills, nasal congestion, and sore throat x3 days. She reports her children are sick at home with strep. MD elicited complaint: sore throat and nasal congestion Related Data Home Medications Medication Instructions Recorded Confirmed No Home Medications 04/25/23 04/25/23 Allergies Allergy/AdvReac Type Severity Reaction Status Date / Time doxycycline Allergy Mild LOSS OF Verified 04/25/23 13:53 VISION cefaclor Allergy Unknown Unknown Verified 04/25/23 13:53 codeine Allergy Unknown Unknown Verified 04/25/23 13:53 Penicillins Allergy Unknown Unknown Verified 04/25/23 13:53 Sulfa (Sulfonamide Allergy Unknown Unknown Verified 04/25/23 13:53 Antibiotics) sulfamethizole Allergy Unknown Unknown Verified 04/25/23 13:53 Review of Systems Review of Systems: Pertinent positives per HPI. Patient denies any rash, headache, visual changes, dizziness, shortness of breath, chest pain, palpitations, nausea, vomiting, diarrhea, constipation, abdominal pain, or any urinary issues. [facility] Past Medical History Medical History Asthma Celiac disease Hypothyroid Social History Social History Smoking status: Never smoker Alcohol intake: current Drinks per week: 7 Substance use: never Substance use type: does not use Living arrangements: alone Gender identity (if verbalized by the patient): Female Sexual Orientation (if Verbalized by the Patient): Straight or Heterosexual Spiritual care concerns: No Comments At the time of my signature, I reviewed and agree with the nursing past medical, surgical, social, and family history. There is no relevant family history pertinent to the patient complaint. Exam Narrative: General: Well-developed, obese, in no apparent distress Head: Normocephalic, atraumatic Eyes: Pupils equally round and reactive to light bilaterally, EOM intact, sclera and conjunctive clear, no discharge, lids normal Ears: TMs intact and congested, ear canals clear, no drainage, grossly hearing normal. Nose: Nares patent, clear nasal discharge, no inflammation, no sinus tenderness. Mouth: Oral pharynx red without lesions or masses, good dentition, MMM. Postnasal drip Neck: Supple, trachea midline, no enlargement of anterior or posterior cervical nodes, no thyroid masses or goiter palpable. Cardio: Regular rate and rhythm, s1 and s2 normal, no murmur appreciated. Resp: Clear to auscultation bilaterally, no rhonchi, rales, wheezing or rubs Course Course Emergency Course: Portions of this record may have been created with voice recognition software. Level of Care: Express Care Visit Vital Signs Vital signs: Vital signs reviewed MDM - URI/Sore Throat MDM Narrative Medical decision making narrative: At the time of visit patient is resting comfortably on the exam table. Patient appears to be nontoxic. Labs: COVID, flu, and strep test was performed Plan: Supportive measures were discussed with the patient and they voiced understanding discharge instructions and agrees to treatment plan. Return precautions reviewed Differential Diagnosis Differential diagnosis: Likely sinusitis, viral infection, influenza and pharyngitis Discharge Plan Discharge Clinical Impression: Viral infection Upper respiratory infection Qualifiers: URI type: unspecified URI Qualified Code(s): J06.9 - Acute upper respiratory infection, unspecified Pharyngitis Qualifiers: Pharyngitis/tonsillitis etiology: unspecified
[2023-04-25 13:58] VITALS: BP 109/98; PULSE 86; RESP 16; TEMP 36.9; O2SAT 100
== END 2023-04-25 14:25 | disposition home or self-care (01) ==
PROVIDERS: Emergency Provider Nurse Practitioner Family; PCP Family Medicine
DX: B34.9 Viral infection, unspecified (principal); J06.9 Acute upper respiratory infection, unspecified; J02.9 Acute pharyngitis, unspecified; Z20.822 Contact with and (suspected) exposure to COVID-19; J45.909 Unspecified asthma, uncomplicated; E03.9 Hypothyroidism, unspecified; K90.0 Celiac disease
CPT/HCPCS: 87081; 87426; 87804; 87880; 99213; G0463